=== PATIENT | female | born 1975 | race Caucasian/White ===

== ENCOUNTER 2017-01-16 09:48 | Day surgery (SDC) | payer OTHER ==
[~2017-01-16] VITALS: Ht 167.6 cm; Wt 112.0 kg
[2017-01-16] VITALS (10 sets, daily range): BP systolic 104–130; BP diastolic 50–77; PULSE 78–98; RESP 12–22; O2SAT 93–99
[2017-01-16] MEDS: Lactated Ringer's 1,000 ML IV SCH ×6 (05:00→14:27)
[~2017-01-16 09:48] MED LIST: CEFAZOLIN IV SCH; DEXTROSE 5% IV SCH; MEDR150D9 IM; OXYC1TAB24 PO; SERT50TA9 PO
[2017-01-16] MEDS ORDERED: Dexamethasone 4 mg/mL Inj ONE (09:49)
[2017-01-16] MEDS ORDERED: Lidocaine PF 1% 30 mL Inj ONE (09:49)
[2017-01-16] MEDS ORDERED: Phenylephrine/NS-PF 100 mCg/mL 5 mL Syringe IVPUSH ONE (09:49)
[2017-01-16] MEDS ORDERED: EPHEDrine/NS 5 mg/mL 5 mL Syringe ONE (09:49)
[2017-01-16] MEDS ORDERED: MetoCLOpramide 5 mg/mL 2 mL Inj ONE (09:49)
[2017-01-16] MEDS ORDERED: Ondansetron 2 mg/mL 2 mL Inj ONE (09:49)
[2017-01-16] MEDS ORDERED: fentaNYL-PF 50 mCg/mL 2 mL Inj ONE (09:49)
[2017-01-16] MEDS ORDERED: Neostigmine 1 mg/mL 10 mL Inj ONE (09:49)
[2017-01-16] MEDS ORDERED: Glycopyrrolate 0.2 MG/ML 1mL Inj ONE (09:49)
[2017-01-16] MEDS ORDERED: Propofol 10,000 mCg/mL 20 mL Inj ONE (09:49)
[2017-01-16] MEDS ORDERED: CeFAZolin Inj 2 gm / 50mL D5W IV ONE (11:53)
[2017-01-16] MEDS: CeFAZolin Inj 2 GM in IV Premix 1 EACH IV ONE ×2 (12:01→12:45)
[2017-01-16 12:17] LABS: BASOPHILS % (AUTO) 0.4 % (0-3); EOSINOPHILS % (AUTO) 3.2 % (0-5); MONOCYTES % (AUTO) 5.4 % (4-12); Mean Corpuscular Hemoglobin 30.2 pg (27.0-35.0); Mean Corpuscular Volume 90.3 fL (81-100); NEUTROPHILS % (AUTO) 69.6 % (40-74); Platelet Count 326 bil/L (150-400)
--- NOTE | 2017-01-16 12:18 | PCM.HPANE ---
Patient Data Date of Service: January 16, 2017 Surgeon Admitting Provider: Attending Provider:Chito Chacko MD Primary Care Physician:Pankaj Other Provider:Serge Ibarra Anesthesia Reason for Visit Chronic Pelvic Pain Ht/WT & BMI Height (Feet): 5 Height (Inches): 6 Weight (Kilograms): 112 Body Mass Index 39.00 Allergies Coded Allergies: No Known Allergies (Unverified , 01/14/17) Past Anesthesia History Anesthesia History: Denies:: Abnormal Airway, Anesthesia Reactions, Difficult Intubation, Fam Anesthesia Reaction (doesnt know blood family) Diabetes History Hx Diabetes?: No MRSA MRSA: No Medications Hypertension Medication: No Home Meds Incl Beta Talon: No Reported Medications Medroxyprogesterone Acetate (Depo-Provera)150 Mg/1 Ml [id number] Mg IM [id number] 01/14/17 Sertraline HCl (Sertraline)50 Mg [id number] Mg PO HS 30 Days Ref 0 01/14/17 oxyCODONE-Acetaminophen 5-325 mg 1 Each Tablet1 Tab PO Q4H PRN For Pain Ref 0 01/14/17 History History of ENT Problems?: No HEENT History: Denies:: Abnormal Airway Cataracts Difficult Intubation Dysphagia Glaucoma Hearing Problem Sinus Problem TMJ Denture Type: None Teeth Condition: Broken Teeth (front right incisor crown broken) Other HEENT Pertinent History: hx of lasik surgery- bilateral Hx of Heart Problems?: No Cardiovascular History: Denies:: AICD Atrial Fibrillation Coronary Artery Disease Edema Heart Murmur Hypertension Irregular Heartbeat Pacemaker Peripheral Vascular Hx of Respiratory Problem?: No Respiratory History: Denies:: Asthma COPD Emphysema Oxygen Administration Pneumonia Tuberculosis Use of C-PAP Machine (sleep studies done- CPAP recommended does not use) Use of Inhalers / NEBS Other Resp Pertinent History: pt states she was diagnosed with narcolepsy- not sleep apnea- does not use CPAP although one was provided for her Hx Neurologic Problems?: No Neurological History: Denies:: CVA Dementia Dizziness Headaches Multiple Sclerosis Parkinson's Disease Seizures TIA Hx of GI Problems?: Yes Gastrointestinal History: Denies:: Cirrhosis Gastroesphageal Reflux Hx of Problems?: No Genitourinary History: Denies:: Kidney Stones Urinary Tract Infection Female Hx: Positive for:: Endometriosis (pelvic pain current admission problem ) Denies:: Currently (TUBAL, DEPO PROVERA) Problems with Breasts? Skin History: Denies:: History Skin Disorders? Pressure Ulcers Hx Musculoskeletal Problems?: Yes Musculoskeletal History: Positive for:: Musculoskeletal Trauma ("gimpy" ankle) Osteoarthritis Denies:: Back Injury Fibromyalgia Joint Replacement Myasthenia Gravis Systemic Lupus Hx of Psycho/Social Problems?: Yes Psycho Social History: Positive for:: Hx Depression Hx Surgeries?: Yes (ORIF ankle, tubal, lasik) Hx Any Other Health Problems?: Yes Other History: Denies:: Cancer Thyroid Disease History Blood Transfusions: Positive for:: Accept Blood Products? Denies:: Blood Transfusions Hx Diabetes: No Hx Alcohol Use: YesAlcoholic Drinks Per Day: maybe once yearly Smoking Status: Current Every Day Smoker Have You Smoked inLast 12 mo: Yes (1 pack daily) Stop/Bang P-Blood Pressure: treated: No B- Body Mass Index > 35 kg/m2: Yes A- Age over 50: No N- Neck Large Circumference: Yes G- Gender Male: No KAREN Risk Assessment: Low Risk, <3 Yes Risk Assessment Category Category 1A: Patient has history of documented sleep apnea, and HAS NOT received any narcotic, sedative or anesthesia administration during this stay. Category 1B: Patient has history of documented sleep apnea, and HAS received any narcotic , sedative or anesthesia administration during this stay Category 2: Patient has SUSPECTED Obstructive Sleep Apnea, and HAS received any narcotic , sedative or anesthesia administration during this stay. Category 3: Patient has SUSPECTED Obstructive Sleep Apnea and HAS NOT received narcotic, sedative or anesthesia administration during this stay. Category 4: Outpatient in Procedural Areas with known sleep apnea or who screen positive for High Risk via the STOP/BANG questionnaire. Exam Exam Vital Signs Vital Signs Date Time Temp Pulse Resp B/P Pulse Ox O2 Delivery O2 Flow Rate FiO2 01/16/17 10:29 35.9 81 12 122/65 97 Room Air General Appearance: Alert, Oriented X3, Cooperative, No Acute Distress HEENT/AIRWAY: MP 1, Neck Movement (FROM, TMD 3 FB) Lungs: Clear to Auscultation, Normal Air Movement Heart: Exam Unremarkable, Regular Rate/Rhythm, No Murmurs/Rubs/Gallops Meds/Labs/Diagnostics Admission Meds Current Medications Lactated Ringer's 1,000 ml @ 120 mls/hr Q8H20M IV Last administered on t 12:01; Start 01/16/17 at 05:00; Stop 01/16/17 at 13:19 Cefazolin Sodium/ Dextrose/Premix (Ancef Inj / D5W 50mL/IV Premix) 50 ml @ 100 mls/hr PREOP ONCE IV Last administered on 01/16/17t 12:01; Start 01/16/17 at 06:00; Stop 01/16/17 at 11:14; Status DC Labs Test 01/16/17 12:05 Plan Impression Patient chart reviewed, patient interviewed and anesthestic plan with risks, benefits, and alternatives discussed, and informed consent obtained. NPO per Anesth. Guidelines: Yes ASA Physical Status: ASA3 Severe Disease (morbid obesity, smoker) Anesthetic Plan: GA Bene/Risks/Altern/Consents: Yes HP Complete Prior to Induction: Yes Magnus Gonsalez MD January 16, 2017 12:18
[2017-01-16] MEDS ORDERED: Alum-Mag Hydrox-Simeth 30 mL Suspension PO PRN (12:20)
[2017-01-16] MEDS ORDERED: Senna-Docusate 8.6-50 mg Tablet PO PRN (12:20)
[2017-01-16] MEDS ORDERED: Bupivacaine-MPF 0.5% W/EPI 30 mL Inj INFILTRATE ONE (13:10)
[2017-01-16] MEDS ORDERED: Lactated Ringer's 500 ML IV PRN (13:23)
[2017-01-16] MEDS ORDERED: HYDROmorphone 1 mg/mL Inj IVPUSH PRN (13:25)
[2017-01-16] MEDS ORDERED: EPHEDrine Sulfate 50 mg/mL Inj IVPUSH PRN (13:25)
[2017-01-16] MEDS ORDERED: hydrALAZINE 20 mg/mL Inj IVPUSH PRN (13:25)
[2017-01-16] MEDS ORDERED: Atropine 0.4 mg/mL Inj IVPUSH PRN (13:25)
[2017-01-16] MEDS ORDERED: Labetalol 5 mg/mL 4 mL Inj IV PRN (13:25)
[2017-01-16] MEDS ORDERED: Phenylephrine 10,000 mCg/mL Inj IVPUSH PRN (13:25)
[2017-01-16] MEDS ORDERED: Ondansetron 2 mg/mL 2 mL Inj IVPUSH PRN ×2 (13:25→16:25)
[2017-01-16] MEDS ORDERED: EPHEDrine Sulfate 50 mg/mL Inj IM PRN (13:25)
[2017-01-16] MEDS ORDERED: fentaNYL-PF 50 mCg/mL 2 mL Inj IVPUSH PRN (13:25)
[2017-01-16] MEDS ORDERED: hydrOXYzine Inj 50 MG/1 mL SDV IM PRN (13:25)
[2017-01-16] MEDS: 0.9% Sodium Chloride 1,000 ML IV SCH ×2 (16:24→19:03)
[2017-01-16] MEDS ORDERED: Acetaminophen IV 1,000 MG in IV Premix 1 EACH IV PRN (16:25)
[2017-01-16] MEDS ORDERED: HYDROmorphone 0.5 mg/0.5 mL iSecure Syringe IVPUSH PRN (16:30)
--- NOTE | 2017-01-16 18:00 | NUR ---
Admit 42 year old from PACU after Diagnostic Laparoscopy, JPlasma lesions, Hysterscopy and D&C. VSS. Denies pain, or nausea. Up to BR with 2 person assist, unstable on left foot, and dizzy. Unable to void. Bladder scan for 175ml. Report to Dr Chacko who is at bedside will continue to monitor. Instructed pt to call for assistance when getting out of bed.
[2017-01-16] MEDS: Senna-Docusate 8.6-50 mg Tablet PO SCH (20:30)
[2017-01-16] MEDS: HYDROcodone-APAP 5-325 mg Tablet PO PRN (20:30)
[2017-01-17] MEDS: HYDROcodone-APAP 5-325 mg Tablet PO PRN ×3 (00:02→09:12)
--- NOTE | 2017-01-17 01:47 | OP ---
[address] [address] OPERATIVE REPORT PATIENT: MARIELY VILLALOBOS : 1975 MR#: [id number] ADMIT: 01/16/2017 JOB ID: [id number] DATE OF SURGERY: 01/16/2017 SURGEON: Chito Chacko MD. ASSISTANTS: Elroy Caro MD , first officer. Gray Nicholson MD, second assist. Both were required for retraction and exposure, and for assistance with laparoscopy for handling the scope and the retraction. PREOPERATIVE DIAGNOSIS(ES): 1. Chronic pelvic pain. 2. Endometrial lesion per ultrasound. POSTOPERATIVE DIAGNOSIS(ES): 1. Chronic pelvic pain. 2. Endometrial lesion per ultrasound. 3. Endometriosis. 4. Asherman syndrome. 5. Hepatic lesion. PROCEDURE: 1. Laparoscopic excision and ablation of endometriosis. 2. Laparoscopic excision of bilateral endometrioma-like cyst involving both fallopian tubes. 3. Salpingectomy of the remnant bilateral fallopian tubes after previous tubal ligation. 4. Hysteroscopy, dilatation and curettage. COMPLICATIONS: None. IMPLANTS: None. BLOOD PRODUCTION ADMINISTRATION: None. BLOOD LOSS: Estimated 100 mL. INTRAVENOUS FLUID: 1200 mL of crystalloid fluid. URINE OUTPUT: Bladder was straight cathed prior to the procedure. ANESTHESIA: General. SPECIMENS: Endocervical curetting, endometrial curetting, left and right distal half of the fallopian tubes, right and left fallopian tube, endometrioma-like cyst, pelvic wall peritoneum left side. INDICATION: This is a 42 years old 1, para 1, with history of chronic pelvic pain started after tubal ligation with severe pain, treated with control pills and then on Depo-Provera. Had trial of Mirena prior to last two. Last menstrual period was 20 years ago secondary to the continuous use of control. Pain frequency improved with the control pills and then with Depo-Provera, but pain is still severe for 10 days monthly. History of chronic constipation. Pelvic ultrasound: Uterus is normal in size 6.8 x 5.7 x 5.5 cm. Possible collection of blood and debris at uterine fundus measuring 30 x 28 x 39 mm. Normal ovaries bilaterally by ultrasound. Abnormal uterine bleeding. Blood workup within normal limits. FINDINGS: Exam under anesthesia revealed anteverted, anteflexed normal size uterus. Adnexa normal to palpation bilaterally. No palpable adnexal masses. Good uterine descent to more than 50% of the vaginal length up to 3-4 cm above the hymen. Laparoscopic findings: Normal ovaries bilaterally. Bilateral fallopian tube cyst, dark brown in color endometrioma-like in appearance noted after rupture of the right cyst that released brown chocolate-like fluid. The left fallopian tube cyst was sent to pathology intact. The right fallopian tube cyst was causing adhesion and attached to the right round ligament. Distal stump of the remaining fallopian tube after previous tubal ligation was normal in appearance. Endometriosis lesions appears to be superficial involving the left pelvic sidewall, 2-3 cm total in size, red to dark red in color. 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 On hysteroscopy the uterine cavity was obliterated with adhesions. Adhesions were released after curettage and second-look with hysteroscopy revealed two horns, both ostia were visualized. Examination of the upper abdomen revealed a lesion in the edge of the liver that is approximately 1 cm in size or less with intact surface, red-brown in color, possible hemangioma, will further consult General Surgery as outpatient. PROCEDURE: After informed consent was obtained patient was taken to the operating room. She was placed under general anesthesia. She was prepped and draped in usual sterile fashion for abdominal and pelvic procedure. Patient was placed in dorsal lithotomy position. Speculum was placed in the vagina and cervix was grasped with a single-tooth tenaculum, and Nobles acorn uterine manipulator was placed without difficulty. Then, maintaining sterile technique, gloves were changed and attention was turned to the abdominal part of the procedure, where infraumbilical skin incision was made with a scalpel and was carried down to the fascia with blunt dissection. The fascia was grasped with Aleida clamps, was elevated to the incision and was incised with scalpel. Then, the peritoneum was entered with blunt dissection. A 5 mm trocar was placed. The peritoneum was distended with gas, initially difficulty was encountered secondary to thick subcutaneous layer. The trocar was displaced and some gas was leaking in the subcutaneus layer, so the trocar was replaced with a longer trocar and the abdomen was extended to achieve adequate pneumoperitoneum. Then, two accessory ports were placed in the right and left lower quadrants, each were 5 mm in size. Examination of the pelvic cavity revealed the findings as mentioned above. LigaSure was used to excise the left and right fallopian tube cysts. The left cyst was excised intact. The right cyst was ruptured during the excision and revealed the brown chocolate-like thick fluid. Then, the remaining distal stump of the fallopian tubes was excised by transecting the mesosalpinx with LigaSure. Hemostasis was ensured. Then, the area of endometriosis in the left pelvic sidewall was elevated with forceps. The area was above the external iliacs and lateral in an area clear of vascularity and clear of any major organs. Secondary to large area size, a part of the lesion was excised then and was sent to Pathology for further evaluation. The rest of the endometriosis was ablated with J-Plasma with helium cautery, setting was 20% at 4 L. Both uterosacral ligaments were cleared of any visible lesions, and the posterior cul-de-sac and anterior cul-de-sac were cleared of any visible endometriosis lesions. The intra-abdominal pressure was decreased. All areas of excision were examined and hemostasis was ensured. No evidence of any bowel or vascular injury at entry and trocar sites were examined and no evidence of bleeding was noted. At this point, the laparoscopic procedure was complete and all instruments where removed after deflating the abdomen. The infraumbilical fascia incision was closed with 0-Vicryl in a running fashion. All skin incision were closed with 4-0 Monocryl in subcuticular fashion. Steri-Strips were applied followed by bandage. Then, attention was turned to the hysteroscopy, where patient was placed in dorsal lithotomy position and weighted speculum was placed in the posterior vaginal vault. Anterior retractor was placed with good visualization of the cervix. Anterior lip of the cervix was grasped with single-tooth tenaculum. The cervix was dilated up to 6 mm Hegar dilator. The hysteroscope was introduced through the cervical os. Examination of the pelvic cavity was performed with the finding as mentioned above. The endometrial cavity was mostly obliterated by adhesion. The left ostia was visualized. The hysteroscope was removed. Dilatation was performed to accommodate the medium-sized curette. Then, the hysteroscope was reintroduced. The uterine cavity was visualized with two separate horns. The left and right horns were followed up to the left ostia. The hysteroscope was removed. All instruments were removed. Monsel's was applied at the cervix for hemostasis. All instrument were removed from the vagina. The sponge, needle and instrument counts were correct x2. Patient tolerated the procedure well and was transferred to the recovery room in stable condition. Chito Izaguirre MD was present and scrubbed for the entire procedure. SUSANA
[2017-01-17 03:00] VITALS: BP 120/79; PULSE 80; RESP 18; O2SAT 97
--- NOTE | 2017-01-17 04:57 | NUR ---
Shift note Assumed care of patient at 1900. Pt unable to void previous shift, bladder scanned for 682cc. Pt up to void at 2000 and able to void 700cc clear afsaneh urine. Pt ambulating well with cane, pain well controlled with PO vicodin x2 and one does Torodol. No c/o headache or dizziness. Vitals stable.
[2017-01-17 06:55] LABS: BASOPHILS % (AUTO) 0.1 % (0-3); EOSINOPHILS % (AUTO) 0.1 % (0-5); MONOCYTES % (AUTO) 5.3 % (4-12); Mean Corpuscular Hemoglobin 30.5 pg (27.0-35.0); Mean Corpuscular Volume 92.7 fL (81-100); NEUTROPHILS % (AUTO) 82.2 % (40-74); Platelet Count 281 bil/L (150-400)
[2017-01-17 07:15] VITALS: BP 113/58; PULSE 74; RESP 20; O2SAT 100
[2017-01-17] MEDS: 0.9% Sodium Chloride 1,000 ML IV SCH (08:24)
[2017-01-17] MEDS: Senna-Docusate 8.6-50 mg Tablet PO SCH (08:30)
--- NOTE | 2017-01-17 09:10 | PCM.DIOB ---
Obstetrical Disch Instruction Date of Service: January 17, 2017 Dates of Hospitalization Date of Hospital Admission January 16, 2017 at 17:45 Providers Admitting Physician: Chito Chacko MD Primary Care Physician: Pankaj Attending Physician: Chito Chacko MD Discharge Diagnosis Discharge Diagnosis chronic pelvic pain Endometriosis Asherman's Syndrome (adhesiones of the the endometrium) Problems: Activity Discharge Activity-General: Try not to overdue, Balance rest and activity, No lifting >10 pounds for 4-6 weeks Dressing and Incisional Care Hygiene: January shower (Daily ) Follow Up Plan Follow-up appointment: Weeks (Two) Call your provider for: Fever or Chills, Shortness of breath, Heavy vaginal bleeding, Heavy bleeding, Epigastric pain, Excessive constipation, Vaginal discomfort, Red painful breasts Chito Chacko MD January 17, 2017 09:10
[2017-01-17] MEDS ORDERED: oxyCODONE-Acetamin 5-325 mg Tablet PO PRN (10:00)
[2017-01-17 10:14] LABS: Mean Corpuscular Hemoglobin 30.1 pg (27.0-35.0); Mean Corpuscular Volume 92.4 fL (81-100)
--- NOTE | 2017-01-17 10:22 | NUR ---
Pain: Pt is having some increased pain this am that is not controlled well with her PO Vicodin and IB. called and order received for muscle relaxers.
--- NOTE | 2017-01-17 11:05 | NUR ---
Case Management: Clarification of patient status: Outpatient in a bed per MD order on admit. Kathia Peres RN
[2017-01-17 11:15] VITALS: BP 112/60; PULSE 74; RESP 18; O2SAT 100
--- NOTE | 2017-01-17 13:00 | PCM.DC.OB ---
Obstetrical Discharge Summary Date of Service January 17, 2017 Date of hospital admission 01/16/17 Out patient surgery with bed for observation overnight. Date of Discharge: January 17, 2017 Providers Admitting Physician: Primary Care Physician: Pankaj Attending Physician: Chito Chacko MD Hospital Course: Discharge Diagnosis Discharge Diagnosis chronic pelvic pain Endometriosis Asherman's Syndrome (adhesiones of the the endometrium) DISCHARGE DAY EXAM: Postoperative day number 1, patient is ambulating, tolerating regular diet without nausea or vomiting and voiding without difficulty. Pain was well controlled. No chest pain, no headache or change in vision. VS: Vital Signs (Last) Date Time Temp Pulse Resp B/P Pulse Ox O2 Delivery O2 Flow Rate FiO2 01/19/17 11:22 Room Air 01/17/17 11:15 36.8 74 18 112/60 100 General: Alert, Oriented X3 Lungs: Clear to Auscultation, Clear to Percussion Heart: Regular Rate/Rhythm, Normal S1, Normal S2 Abdomen: Soft, no guarding , localized tenderness at incisions. Surgical Wound: Incisions General Appearance: Steri Strips, Sutures, Intact, Well Approximated, Incision Healing, No Erythema, No Discharge Extremities: No tenderness/swelling, Edema 1+ LABS: Laboratory Tests 72 Hours Test 01/17/17 06:41 01/17/17 10:05 White Blood Count 17.5th/mm3 (3.8-10.1) 17.5th/mm3 (3.8-10.1) Red Blood Count 3.71mil/mm3 (3.90-5.20) 3.69mil/mm3 (3.90-5.20) Hemoglobin 11.3g/dL (12.0-15.6) 11.1g/dL (12.0-15.6) Hematocrit 34.4% (35.0-46.0) 34.1% (35.0-46.0) Mean Corpuscular Volume 92.7fL (81-100) 92.4fL (81-100) Mean Corpuscular Hemoglobin 30.5pg (27.0-35.0) 30.1pg (27.0-35.0) Mean Corpuscular Hemoglobin Concent 32.8% (32.0-37.0) 32.6% (32.0-37.0) Red Cell Distribution Width 13.5% (12.3-15.4) 13.6% (12.3-15.4) Platelet Count 281bil/L (150-400) 290bil/L (150-400) Neutrophils (%) (Auto) 82.2% (40-74) Lymphocytes (%) (Auto) 12.0% (14-46) Monocytes (%) (Auto) 5.3% (4-12) Eosinophils (%) (Auto) 0.1% (0-5) Basophils (%) (Auto) 0.1% (0-3) Disposition: home. Discharge Condition: stable. Activity Discharge Activity-General: Try not to overdue, Balance rest and activity, No lifting >10 pounds for 4-6 weeks Dressing and Incisional Care Hygiene: May shower (Daily ) Follow Up Plan Follow-up appointment: Weeks (Two) Call your provider for: Fever or Chills, Shortness of breath, Heavy vaginal bleeding, Heavy bleeding, Epigastric pain, Excessive constipation, Vaginal discomfort, Red painful breasts . Medroxyprogesterone Acetate (Depo-Provera) 150 Mg/1 Ml Syringe 150 MG IM [id number] (Reported) Sertraline HCl (Sertraline) 50 Mg Tablet 50 MG PO HS (Reported) Last Taken: Unknown Dose on 01/15/17 Discontinued Medications oxyCODONE-Acetaminophen 5-325 mg (oxyCODONE-Acetaminophen 5-325 mg) 1 Each Tablet 1 TAB PO Q4H PRN PRN For Pain (Reported) Last Taken: Unknown Dose on 01/12/17 Chito Chacko MD January 17, 2017 13:00
--- NOTE | 2017-01-19 11:22 | PCM.ANEP1 ---
Post Anesthesia Phase 1 PACU Phase 1 Assessment Date of Service: January 16, 2017 Anesthetic Administered: GA Level of Alertness: Awake, talking ELISE's with Equal Strength: Yes Pain: Yes Pain Scale Score: 5 Nausea or Vomiting: No Cardiovascular Function and Hy: Yes Oxygen Delivery: Room Air Lungs: Clear to Auscultation, Normal Air Movement Dermatome Level: Full Sensation Complications: No Follow up Care: No Patient Instructions Provided: Yes Magnus Gonsalez MD January 19, 2017 11:22
--- NOTE | 2017-01-20 14:46 | PATH ---
SURGICAL PATHOLOGY Attending Physician:Chito Chacko CASE STATUS: Signed Out PATIENT NAME: MARIELY VILLALOBOS PID: [id number] : 1975 DATE COLLECTED:01/16/2017 00:00 SPECIMEN: 1: Ovary, Cyst, Non-Neoplastic 2: Peritoneum, Biopsy or Resection 3: Fallopian Tube, Biopsy 4: Ovary, Cyst, Non-Neoplastic 5: Fallopian Tube, Biopsy 6: Endocervix, Curettage 7: Endometrium, Curettage CLINICAL HISTORY: CHRONIC PELVIC PAIN, ENDOMETRIAL LESION, ENDOMETRIOSIS, ASHERMAN SYNDROME (ENDOMETRIAL CAVITY ADHESIONS) 1). LEFT CORNU CYST, TIF 15:37 2). LEFT PELVIC WALL PERITONEUM, TIF 14:57 3). LEFT FALLOPIAN TUBE DISTAL PORTION, TIF 15:00 4). RIGHT CORNU CHOCOLATE CYST, TIF 15:10 5). RIGHT FALLOPIAN TUBE DISTAL PORTION, TIF 15:16 6). ENDOCERVICAL CURETTAGE, TIF 15:55 7). ENDOMETRIAL CURETTAGE, TIF 16:00 FINAL DIAGNOSIS: 1.LEFT CORNU CYST (FALLOPIAN TUBE): ENDOMETRIOSIS WITH EXTENSIVE OLD HEMORRHAGE. 2.LEFT PELVIC WALL PERITONEUM: FIBROFATTY TISSUE, NEGATIVE FOR EVIDENCE OF ENDOMETRIOSIS. 3.LEFT FALLOPIAN TUBE DISTAL PORTION: AREA OF SALPINGITIS ISTHMICA NODOSUM. NEGATIVE FOR EVIDENCE OF ENDOMETRIOSIS. 4.RIGHT CORNU CHOCOLATE CYST (FALLOPIAN TUBE): ENDOMETRIOSIS WITH EXTENSIVE RECENT AND OLD HEMORRHAGE. 5.RIGHT FALLOPIAN TUBE DISTAL PORTION: FALLOPIAN TUBE WITH NO SIGNIFICANT PATHOLOGIC CHANGE. 6.ENDOCERVICAL CURETTINGS: FRAGMENTS OF ENDOCERVICAL EPITHELIUM AND SQUAMOUS EPITHELIUM, ALL NEGATIVE FOR ATYPIA. 7.ENDOMETRIAL CURETTAGE: BLOOD CONTAINING SMALL FRAGMENTS OF SQUAMOUS EPITHELIUM, ENDOCERVICAL EPITHELIUM, AND SMALL FRAGMENTS OF BENIGN EPITHELIUM CONSISTENT WITH ENDOMETRIAL ORIGIN. NEGATIVE FOR ATYPIA AND MALIGNANCY. ICD10 CODE N80.9 GROSS DESCRIPTION: The specimen is received in seven formalin filled containers labeled with the patient's name. 1). The specimen is sublabeled "left Cornu cyst" and consists of a 0.9 x 0.9 x 0.7 CM to dark mendez-stewart portion of tissue. The specimen is inked blue, trisected and entirely submitted in cassette 1H. 2). The specimen is sublabeled "left pelvic wall peritoneum" and consists of a 0.6 x 0.3 x 0.2 CM light mendez-stewart friable portion of tissue which is inked blue and entirely submitted in cassette 2A. 3). The specimen is sublabeled "left fallopian tube-distal" and consists of a 3.0 x 1.0 x 0.7 CM cylindrical-shaped portion of tissue. The specimen is inked blue. 4 group sales representative sections are submitted in cassette 3A. 4). The specimen is sublabeled "right Cornu chocolate cyst" and consists of a 0.6 0.5 x 0.4 CM dark stewart-brown rough portion of tissue. The specimen is inked blue. The specimen is bisected and entirely submitted in cassette 4A. 5). The specimen is sublabeled "right fallopian tube-distal" and consists of a 4.0 x 1.0 x 0.6 CM cylindrical-shaped portion of tissue. The specimen is inked blue. 4 group sales representative sections are submitted in cassette 5A. 6). The specimen is sublabeled "endocervical curettage" and consists of a scant aggregate of tissue and mucoid material which is filtered and entirely submitted in cassette 6A. 7). The specimen is sublabeled "endometrial curettage" and consists of a approximately a 1 cc aggregate of tissue, mucoid material and blood which is filtered and entirely submitted in a cassette 7A. 01/17/2017 DAC MICRO DESCRIPTION: See diagnosis. ICD-9 CODES: CPT CODES: 1: 53667 2: 82231 3: 70913 4: 53550 5: 36011 6: 79597 7: 25298 Electronically Signed Out Eliseo Woodard MD [facility] Pathology [facility] [address], [place] [address] Technical component performed at [facility], [facility] [address], [place], [address]
== END 2017-01-17 15:11 | disposition home or self-care (01) ==
LOC: SAS 09:48 → UNDOADMIN 17:45 → FBC 17:45 → SAS 01-17 15:11
PROVIDERS: ATTEND Obstetrics & Gynecology
DX: N80.2 Endometriosis of fallopian tube (principal); N80.8 Other endometriosis; N85.6 Intrauterine synechiae; K76.9 Liver disease, unspecified; R10.2 Pelvic and perineal pain; F32.9 Major depressive disorder, single episode, unspecified; E66.9 Obesity, unspecified; M19.90 Unspecified osteoarthritis, unspecified site; F17.210 Nicotine dependence, cigarettes, uncomplicated; Z68.39 Body mass index [BMI] 39.0-39.9, adult
CPT/HCPCS: 36415; 58563; 58661; 58662; 85025; 85027; 86922; J0690; J1100; J1885; J2370; J2405; J2710; J2765; J3010; J7030; J7120